=== PATIENT | female | born 1950 | race Caucasian/White ===

== ENCOUNTER 2017-03-10 06:21 | Day surgery (SDC) | payer OTHER ==
[2017-03-10] MEDS ORDERED: MIDAZOLAM 1 MG/ML 2 ML INJ ×2 (08:31)
[2017-03-10] MEDS ORDERED: FENTAnyl 50 MCG/ML VIAL (08:31)
== END 2017-03-10 10:58 | disposition home or self-care (01) ==
LOC: GIL 06:21
DX: R19.4 Change in bowel habit (principal); K29.70 Gastritis, unspecified, without bleeding; K21.9 Gastro-esophageal reflux disease without esophagitis; K64.8 Other hemorrhoids
CPT/HCPCS: 43239; 88305; 88312